=== PATIENT | female | born 1965 | race Caucasian/White ===

== ENCOUNTER 2020-09-28 10:28 | Inpatient (IN) | payer OTHER, SELFPAY ==
[~2020-09-28] VITALS: Ht 157.5 cm; Wt 71.7 kg
[2020-09-28 11:17] VITALS: Ht 157.5 cm; Wt 71.7 kg
[2020-09-28 12:33] LABS: BASOPHIL % 0.4 % (0.2-1.3)
[2020-09-28 12:54] LABS: PLATELET COUNT 358 x10^3mcL (130-400)
[2020-09-28 13:38] LABS: CALCIUM 9.2 mg/dL (8.5-10.1); CARBON DIOXIDE 24.5 mmol/L (21-32); CHLORIDE SERUM 98 mmol/L (98-107); CREATININE SERUM 0.7 mg/dL (0.6-1.0); GFR1 > 60 mL/min; GLUCOSE SERUM 90 mg/dL (74-106); POTASSIUM SERUM 4.8 mmol/L (3.5-5.1); SODIUM SERUM 137 mmol/L (136-145)
[2020-09-28 13:42] LABS: ALBUMIN 3.9 g/dL (3.4-5.0); ALKALINE PHOSPHATASE 85 U/L (46-116); ALT/SGPT 42 U/L (14-59); AST/SGOT 18 U/L (15-37); BILIRUBIN TOTAL 0.57 mg/dL (0.20-1.00); MAGNESIUM 1.8 mg/dL (1.8-2.4); TOTAL PROTEIN, SERUM 7.6 g/dL (6.4-8.2)
[2020-09-28 16:28] LABS: CHOLESTEROL/HDL RATIO 4.2
[2020-09-29] MEDS ORDERED: COLACE100 MG PO (04:49)
[2020-09-29] MEDS ORDERED: CELEXA40 MG PO (04:49)
[2020-09-29] MEDS ORDERED: GEODON40 MG PO (04:50)
[2020-09-29] MEDS ORDERED: FERROUS SULFATE65 M1 PO (04:50)
[2020-09-29] MEDS ORDERED: HYDROXYZINE PAM50 MG PO (04:51)
[2020-09-29] MEDS ORDERED: FORTAMET1000 MG PO (04:52)
[2020-09-29] MEDS ORDERED: SIMVASTATIN5 M2 PO (04:52)
[2020-09-29] MEDS ORDERED: ZESTRIL2.5 MG PO (04:52)
[2020-09-29] MEDS ORDERED: TRIAMTERENE/HCT1 TA2 PO (04:53)
[2020-09-29] MEDS ORDERED: ZETIA10 M1 PO (04:54)
[2020-09-29 10:03] LABS: CALCIUM 8.9 mg/dL (8.5-10.1); CHLORIDE SERUM 99 mmol/L (98-107); CREATININE SERUM 0.8 mg/dL (0.6-1.0); GFR1 > 60 mL/min; GLUCOSE SERUM 220 mg/dL (74-106); POTASSIUM SERUM 3.9 mmol/L (3.5-5.1); SODIUM SERUM 137 mmol/L (136-145)
[2020-09-29 10:18] LABS: T4(THYROXINE) 9.6 ug/dL (4.7-13.3)
[2020-09-29 10:20] LABS: BASOPHIL % 0.9 % (0.2-1.3); PLATELET COUNT 329 x10^3mcL (179-408); RED CELL DISTRIBUTION WIDTH 13.9 % (12.3-17.7)
[2020-09-29 15:07] LABS: rbc morphology (normal/abnorm) NORMAL (NORMAL)
[2020-09-30 09:59] LABS: CALCIUM 9.6 mg/dL (8.5-10.1); CARBON DIOXIDE 33.3 mmol/L (21-32); CHLORIDE SERUM 100 mmol/L (98-107); CREATININE SERUM 0.8 mg/dL (0.6-1.0); GFR1 > 60 mL/min; GLUCOSE SERUM 125 mg/dL (74-106); POTASSIUM SERUM 4.8 mmol/L (3.5-5.1); SODIUM SERUM 139 mmol/L (136-145)
[2020-09-30 11:03] LABS: BASOPHIL % 0.9 % (0.2-1.3); PLATELET COUNT 346 x10^3mcL (179-408); RED CELL DISTRIBUTION WIDTH 13.9 % (12.3-17.7)
[2020-09-30 20:05] VITALS: BP 123/88
[2020-10-01 06:13] LABS: RAPID PLASMA REAGIN Non Reactive (Non Reactive)
[2020-10-01 09:14] LABS: RHEUMATOID ARTHRITIS FACTOR <10.0 IU/mL (0.0-13.9)
== END 2020-09-30 20:05 | DRG 303 ==
LOC: ED 10:28 → DU 15:02
PROVIDERS: Emergency Medicine; ADMIT Internal Medicine; ATTEND Internal Medicine
DX: I25.10 Atherosclerotic heart disease of native coronary artery without angina pectoris (principal); E86.0 Dehydration; I10 Essential (primary) hypertension; E11.9 Type 2 diabetes mellitus without complications; R94.31 Abnormal electrocardiogram [ECG] [EKG]; Z20.828 Contact with and (suspected) exposure to other viral communicable diseases; E78.5 Hyperlipidemia, unspecified; F39 Unspecified mood [affective] disorder
CPT/HCPCS: 85378; 86431; 87804; A9500; G0378; J2785; J8597